=== PATIENT | male | born 1930 | race Hispanic/Latino ===

== ENCOUNTER → 2018-02-16 | Outpatient (CLI) | payer OTHER, MEDICARE ==
[~2018-02-16] MED LIST: ACET1TAB25 PO; AEC81 PO; ASPI-555 PO; CARV3.12 PO; CLOP75TA32 PO; FE F1CAP33 PO; FURO20TA4 PO; HYDR-4060 PO; ISOS30TA6 PO; LOSA25TA21 PO; MAGN400C PO; ONDA8TAB11 PO; PANT40TA25 PO; PRAV40TA3 PO; SUNI25CA2 PO; TYL3 PO
== END | disposition home or self-care (01) ==
LOC: SHCH 10:45
PROVIDERS: ATTEND Internal Medicine Cardiovascular Disease
DX: I25.810 Atherosclerosis of coronary artery bypass graft(s) without angina pectoris (principal); I25.5 Ischemic cardiomyopathy
CPT/HCPCS: 93306